=== PATIENT | female | born 1960 | race Caucasian/White ===

== ENCOUNTER → 2019-11-06 | Outpatient (CLI) | payer BC ==
[~2019-11-06] MED LIST: B-50 COMPLEX PO; CHOL10003 PO; TAMO20TA PO; TURM500C4 PO
[2019-11-06 11:34] LABS: BASOPHILS # (AUTO) 0.02 x10^3/uL (0-0.1); BASOPHILS % (AUTO) 1 % (0-1); EOSINOPHILS # (AUTO) 0.14 x10^3/uL (0-0.4); EOSINOPHILS % (AUTO) 3 % (1-7); LYMPHOCYTES # (AUTO) 1.69 x10^3/uL (1-3.4); LYMPHOCYTES % (AUTO) 38 % (22-44); MD NO; MEAN CORPUSCULAR HEMOGLOBIN 29.4 pg (27.0-34.8); MEAN CORPUSCULAR HGB CONC 32.4 g/dL (32.4-35.8); MEAN CORPUSCULAR VOLUME 90.8 fL (80-100); MEAN PLATELET VOLUME 7.6 fL (7.4-10.4); MONOCYTES # (AUTO) 0.38 x10^3/uL (0.2-0.8); MONOCYTES % (AUTO) 8 % (2-9); NEUTROPHILS # (AUTO) 2.26 x10^3/uL (1.8-6.8); NEUTROPHILS % (AUTO) 50 % (42-75); PLATELET COUNT 223 x10^3/uL (130-400); RED BLOOD COUNT 4.54 x10^6/uL (3.82-5.3); RED CELL DISTRIBUTION WIDTH 13.6 % (9.6-15.2)
[2019-11-06 11:42] LABS: INTERNATIONAL NORMALIZED RATIO 1.01 (0.93-1.1); PROTHROMBIN TIME 10.7 Seconds (9.6-11.5)
[2019-11-06 11:43] LABS: ALANINE AMINOTRANSFERASE 25 U/L (12-78); ALBUMIN 3.9 g/dL (3.4-5.0); ANION GAP 4 mmol/L (5-15); CALCIUM 9.3 mg/dL (8.5-10.1); CHLORIDE 109 mmol/L (98-107); CREATININE 0.69 mg/dL (0.55-1.02)
[2019-11-06 11:45] LABS: ALKALINE PHOSPHATASE 63 U/L (45-117); BILIRUBIN,TOTAL 0.3 mg/dL (0.2-1.0); TOTAL PROTEIN 6.9 g/dL (6.4-8.2)
== END | disposition home or self-care (01) ==
LOC: STAR 10:28
PROVIDERS: ATTEND Obstetrics & Gynecology
DX: Z01.818 Encounter for other preprocedural examination (principal); R87.619 Unspecified abnormal cytological findings in specimens from cervix uteri; R19.00 Intra-abdominal and pelvic swelling, mass and lump, unspecified site; Z90.710 Acquired absence of both cervix and uterus
CPT/HCPCS: 36415; 71046; 80053; 85025; 85610; 85730; 86304; 93005

== ENCOUNTER 2019-11-10 05:32 | Day surgery (SDC) | payer BC ==
[~2019-11-10] VITALS: Ht 160 cm; Wt 86.9 kg
[2019-11-10] MEDS ORDERED: LACTATED RINGERS 1,000 ML IV SCH (05:47)
[2019-11-10] MEDS ORDERED: CHLORHEXIDINE 15 ML UDC MM ONE (06:00)
[2019-11-10 06:10] VITALS: BP 145/87
[2019-11-10] MEDS ORDERED: GENTAMICIN IV ONE (06:32)
[2019-11-10] MEDS ORDERED: DEXTROSE 5% IV ONE (06:32)
[2019-11-10] MEDS ORDERED: CLINDAMYCIN PMX 600MG/50ML 50 ML IV STA (06:49)
[2019-11-10] MEDS ORDERED: EPINEPHRINE 1 MG/ML, 1ML ONE (06:58)
[2019-11-10] MEDS ORDERED: INDOCYANINE GREEN 25 MG VIAL ONE (06:58)
[2019-11-10] MEDS ORDERED: BUPIVACAINE/PF 0.25% ONE (06:58)
[2019-11-10] MEDS ORDERED: HEPARIN 1,000 UNITS/ML, 10ML ONE (06:58)
[2019-11-10] MEDS ORDERED: MIDAZOLAM 1 MG/ML, 2ML ONE (07:27)
[2019-11-10] MEDS ORDERED: SCOPOLAMINE 1MG PATCH TD ONE (07:27)
[2019-11-10] MEDS ORDERED: FENTANYL PF 250 MCG/5ML ONE (07:31)
[2019-11-10] MEDS ORDERED: SUCCINYLCHOLINE 20 MG/ML, 10ML ONE (07:34)
[2019-11-10] MEDS ORDERED: ROCURONIUM 10MG/ML,5ML ONE (07:34)
[2019-11-10] MEDS ORDERED: CEFAZOLIN 1,000 MG ONE (07:34)
[2019-11-10] MEDS ORDERED: DEXAMETHASONE 4 MG/ML, 1ML ONE (07:34)
[2019-11-10] MEDS ORDERED: GLYCOPYRROLATE 0.2MG/1ML, 5ML ONE (07:34)
[2019-11-10] MEDS ORDERED: PROPOFOL 10 MG/ML, 20ML ONE (07:34)
[2019-11-10] MEDS ORDERED: NEOSTIGMINE 1 MG/ML, 10ML ONE (07:34)
[2019-11-10] MEDS ORDERED: ONDANSETRON 2MG/ML, 2ML ONE (07:34)
[2019-11-10] MEDS ORDERED: BUPIVACAINE/PF-EPI 0.25% 1:200K INFIL ONE (08:15)
[2019-11-10] MEDS ORDERED: INDOCYANINE GREEN 25 MG VIAL INJ ONE (08:15)
[2019-11-10] MEDS ORDERED: PROMETHAZINE 25 MG/ML, 1ML IV PRN (08:30)
[2019-11-10] MEDS ORDERED: ALBUTEROL SULFATE 2.5 MG/3 ML NPPB PRN (08:30)
[2019-11-10] MEDS ORDERED: DIAZEPAM 5 MG/ML, 2ML IVPush PRN (08:30)
[2019-11-10] MEDS ORDERED: KETOROLAC 30 MG/1 ML IV PRN (08:30)
[2019-11-10] MEDS ORDERED: FENTANYL PF 100 MCG/2ML IV PRN (08:30)
[2019-11-10] MEDS ORDERED: MEPERIDINE/PF 25MG/0.5ML IVPush PRN (08:30)
[2019-11-10] MEDS ORDERED: LABETALOL 5MG/ML, 20ML IV PRN (08:30)
[2019-11-10] MEDS ORDERED: ACETAMINOPHEN 325 MG TABLET PO PRN (08:30)
[2019-11-10] MEDS ORDERED: HYDROmorphone 2 MG/ML, 1ML IVPush PRN (08:30)
[2019-11-10] MEDS ORDERED: OXYcodone 5 MG/5 ML ORAL.SOL UDC PO PRN (08:30)
[2019-11-10] MEDS ORDERED: hydrALAzine 20 MG/ML, 1ML IV PRN (08:30)
[2019-11-10] MEDS ORDERED: SUGAMMADEX 200 MG/2 ML IVPush ONE (10:15)
[2019-11-10] MEDS ORDERED: KETOROLAC 30 MG/1 ML ONE (10:15)
[2019-11-10] MEDS ORDERED: ONDA4TAB7 PO (10:35)
[2019-11-10] MEDS ORDERED: OXYC-302 PO (10:35)
[2019-11-10] MEDS ORDERED: ACETAMINOPHEN 650 MG/20.3 ML UDC ONE (11:19)
[2019-11-10] MEDS ORDERED: OXYcodone 5 MG/5 ML ORAL.SOL UDC ONE (11:19)
== END 2019-11-10 14:35 | disposition home or self-care (01) ==
LOC: OUT 05:32
PROVIDERS: ATTEND Obstetrics & Gynecology
DX: R19.00 Intra-abdominal and pelvic swelling, mass and lump, unspecified site (principal); N84.0 Polyp of corpus uteri; N83.8 Other noninflammatory disorders of ovary, fallopian tube and broad ligament; J45.909 Unspecified asthma, uncomplicated; K21.9 Gastro-esophageal reflux disease without esophagitis; E66.9 Obesity, unspecified; Z85.3 Personal history of malignant neoplasm of breast; Z79.810 Long term (current) use of selective estrogen receptor modulators (SERMs); Z68.33 Body mass index [BMI] 33.0-33.9, adult; Z88.0 Allergy status to penicillin; Z88.5 Allergy status to narcotic agent; Z88.2 Allergy status to sulfonamides; Z90.49 Acquired absence of other specified parts of digestive tract; Z98.890 Other specified postprocedural states; Z79.899 Other long term (current) drug therapy
CPT/HCPCS: 36415; 38571; 58573; 86850; 86900; 86923; 87635; 88112; 88305; 88307; 88331; 88333; 88334; J0171; J0690; J1100; J1580; J1644; J1885; J2405; J2704; J3010; J3490; J7120; S2900; J2710; J0330